=== PATIENT | male | born 1940 | race Caucasian/White ===

== ENCOUNTER → 2016-12-30 | Outpatient (CLI) | payer MEDICARE, OTHER | LOC: KOH-I 13:25 | DX: F02.80 Dementia in other diseases classified elsewhere, unspecified severity, without behavioral disturbance, psychotic disturbance, mood disturbance, and anxiety (principal); J32.4 Chronic pansinusitis | CPT/HCPCS: 70450 ==

== ENCOUNTER 2017-03-09 21:42 | Emergency (ER) | payer MEDICARE, OTHER ==
[2017-03-09 23:03] LABS: HEMOGLOBIN 13.9 gm/dl (14.0-17.5); RED BLOOD COUNT 4.6 M/UL (4.20-5.50)
== END 2017-03-10 02:14 | disposition home or self-care (01) ==
LOC: ER1 21:42
PROVIDERS: Family Medicine
DX: R41.82 Altered mental status, unspecified (principal); I10 Essential (primary) hypertension; Z88.6 Allergy status to analgesic agent; Z88.8 Allergy status to other drugs, medicaments and biological substances
CPT/HCPCS: 36415; 70450; 80053; 82550; 82553; 83874; 84484; 85025; 93005; 99285

== ENCOUNTER 2020-11-24 09:41 | Inpatient (IN) | payer MEDICARE, OTHER ==
[~2020-11-24] VITALS: Ht 182.9 cm; Wt 86.7 kg
[~2020-11-24 09:41] MED LIST: ACETAMINOPHEN500 MG PO; ALDACTONE 25MG25 MG PO; ALOE VESTA TOP; AMOX TR-K CLV1 EAC4 PO; ARICEPT10 MG PO; ARTANE 2MG TABLE2 MG PO; AVODART 0.5 MG0.5 MG PO; AZELASTINE HCL6 ML EYEBOTH; COENZYME Q10200 MG PO; COLACE 100MG C100 MG PO; COMBIVENT0.074 GM/I INH; COREG 3.125M3.125 MG PO; DAILY VITE1 EACH PO; DIAPER RASH57 GM TOP; DULCOLAX10 MG PR; DURAGESIC 12 M1 EACH TP; DURAGESIC1 EACH TD; ELIQUIS2.5 MG PO; FIBER TABS625 MG PO; FLONASE 0.05% N16 GM; GUAIFENESIN200 MG PO; IPRAT-ALBUT 0.5-3 ML INH; K-DUR TAB 20 M20 MEQ PO; KENALOG OINT 0.15 GM TOP; LASIX40 MG PO; LEVEMIR100 UNIT/1 SQ; LEXAPRO5 MG PO; LIPITOR10 MG PO; LOPRESSOR 25 MG25 MG PO; MAGIC BUTT CREAM TOP; METROCREAM 0.7545 GM EXT; MIRAPEX1 MG PO; MYCOSTATIN100000 UTS PO; MYRBETRIQ50 MG PO; NAMENDA10 MG PO; NEUPRO1 EAC1 TD; NORCO 5-325 TA1 EACH PO; OMNICEF 300 MG300 MG PO; PROTONIX40 M1 PO; PULMICORT0.5 MG/21 INH; RANOLAZINE ER500 MG PO; ROCEPHIN 1 GM AD1 GM IV; SENNA LAX8.6 MG PO; SEROQUEL TAB 2525 MG PO; SYNTHROID150 MCG PO; TRILEPTAL150 MG PO
[2020-11-24 10:39] LABS: HEMOGLOBIN 11.4 gm/dl (14.0-17.5); RED BLOOD COUNT 3.88 M/UL (4.20-5.50); WHITE BLOOD COUNT 9.2 K/UL (4.5-11.0)
[2020-11-24 11:05] LABS: BUN/CREATININE RATIO 26 (0-10)
[2020-11-25] MEDS ORDERED: SINEMET 25-1001 EACH PO (05:29)
[2020-11-25] MEDS ORDERED: NOVOLOG FL100 UNIT/1 SQ (07:14)
[2020-11-25] MEDS ORDERED: HYDROCODONE-AC1 EACH PO ×2 (12:17→12:22)
[2020-11-26 05:37] LABS: HEMOGLOBIN 11.4 gm/dl (14.0-17.5); RED BLOOD COUNT 3.88 M/UL (4.20-5.50)
[2020-11-26 05:39] LABS: WHITE BLOOD COUNT 6.8 K/UL (4.5-11.0)
[2020-11-26 05:51] LABS: BUN/CREATININE RATIO 15 (0-10)
--- NOTE | 2020-11-26 15:35 | NUR ---
ESTEVANHOFF PLACED, WITH XRAY CONFIRMATION. BRIDLE NOT PLACED WITH 5 ATTEMPTS. PHYSICIAN NOTIFIED, SAID "IT'S OK, WE WILL TRY TOMORROW."
[2020-11-27 13:06] LABS: HEMOGLOBIN 10.7 gm/dl (14.0-17.5); RED BLOOD COUNT 3.69 M/UL (4.20-5.50); WHITE BLOOD COUNT 6.6 K/UL (4.5-11.0)
[2020-11-27 13:41] LABS: BUN/CREATININE RATIO 10 (0-10)
[2020-11-28 06:03] LABS: HEMOGLOBIN 10.7 gm/dl (14.0-17.5); RED BLOOD COUNT 3.73 M/UL (4.20-5.50); WHITE BLOOD COUNT 7.3 K/UL (4.5-11.0)
[2020-11-28 06:22] LABS: BUN/CREATININE RATIO 11 (0-10)
[2020-11-29 12:13] LABS: BUN/CREATININE RATIO 12 (0-10)
[2020-11-30 03:32] LABS: HEMOGLOBIN 10.5 gm/dl (14.0-17.5); RED BLOOD COUNT 3.61 M/UL (4.20-5.50); WHITE BLOOD COUNT 7.2 K/UL (4.5-11.0)
[2020-11-30 03:52] LABS: BUN/CREATININE RATIO 14 (0-10)
--- NOTE | 2020-11-30 23:54 | NUR ---
PT CONFUSED PULLS DOBBHOFF OUT CONTINUOUSLY. NOTIFIED MD AND RECIEVED ORDERS. WILL CONTINUE TO MONITOR.
[2020-12-01 04:51] LABS: BUN/CREATININE RATIO 12 (0-10)
== END 2020-12-02 15:48 | DRG 177 ==
LOC: ER1 09:41 → CDU 13:22 → MED SURG 4 13:22
PROVIDERS: Emergency Medicine; Internal Medicine; Physician Assistant; ADMIT Internal Medicine
DX: J69.0 Pneumonitis due to inhalation of food and vomit (principal); L89.153 Pressure ulcer of sacral region, stage 3; U07.1 COVID-19; I50.32 Chronic diastolic (congestive) heart failure; I13.0 Hypertensive heart and chronic kidney disease with heart failure and stage 1 through stage 4 chronic kidney disease, or unspecified chronic kidney disease; N18.30 Chronic kidney disease, stage 3 unspecified; J32.4 Chronic pansinusitis; I25.10 Atherosclerotic heart disease of native coronary artery without angina pectoris; Z98.61 Coronary angioplasty status; E11.8 Type 2 diabetes mellitus with unspecified complications; G20 Parkinson's disease; F02.80 Dementia in other diseases classified elsewhere, unspecified severity, without behavioral disturbance, psychotic disturbance, mood disturbance, and anxiety; E03.9 Hypothyroidism, unspecified; E11.22 Type 2 diabetes mellitus with diabetic chronic kidney disease; I49.5 Sick sinus syndrome; Z95.810 Presence of automatic (implantable) cardiac defibrillator; Z88.1 Allergy status to other antibiotic agents; Z88.5 Allergy status to narcotic agent; Z88.8 Allergy status to other drugs, medicaments and biological substances; Z82.49 Family history of ischemic heart disease and other diseases of the circulatory system; Z83.3 Family history of diabetes mellitus; Z86.718 Personal history of other venous thrombosis and embolism; Z66 Do not resuscitate; Z86.16 Personal history of COVID-19; N40.0 Benign prostatic hyperplasia without lower urinary tract symptoms; Z79.4 Long term (current) use of insulin; Z79.899 Other long term (current) drug therapy; Z23 Encounter for immunization
CPT/HCPCS: 36415; 70450; 70490; 71045; 71250; 74018; 80048; 80053; 80202; 81001; 82550; 82553; 82962; 83605; 83690; 83735; 83874; 84484; 85025; 87086; 90471; 90715; 92526; 92610; 93005; 94664; 96365; 96366; 96367; 96368; 96372; 96375; 99285; A6212; J2543; J3370; J7030; J7070; U0002

== ENCOUNTER 2020-12-15 06:49 | Inpatient (IN) | payer MEDICARE, OTHER ==
[~2020-12-15] VITALS: Ht 180.3 cm; Wt 82.6 kg
[~2020-12-15 06:49] MED LIST changes: +HYDROCODONE-AC1 EACH PO; +NOVOLOG FL100 UNIT/1 SQ; +SINEMET 25-1001 EACH PO
[2020-12-15 07:18] LABS: HEMOGLOBIN 15.1 gm/dl (14.0-17.5); RED BLOOD COUNT 4.97 M/UL (4.20-5.50); WHITE BLOOD COUNT 6.5 K/UL (4.5-11.0)
[2020-12-16] MEDS ORDERED: ESCITALOPRAM OX10 MG PO (01:51)
[2020-12-16] MEDS ORDERED: QUETIAPINE FUMA25 MG PO (01:52)
[2020-12-16 02:43] LABS: HEMOGLOBIN 14.2 gm/dl (14.0-17.5); RED BLOOD COUNT 4.79 M/UL (4.20-5.50)
[2020-12-16 02:49] LABS: WHITE BLOOD COUNT 14.9 K/UL (4.5-11.0)
[2020-12-17 02:28] LABS: HEMOGLOBIN 13.3 gm/dl (14.0-17.5); RED BLOOD COUNT 4.48 M/UL (4.20-5.50); WHITE BLOOD COUNT 16.2 K/UL (4.5-11.0)
[2020-12-17 03:00] LABS: ACINETOBACTER BAUMANNII Not Detected (Negative); CANDIDA ALBICANS Not Detected (Negative); CANDIDA KRUSEI Not Detected (Negative); CANDIDA TROPICALIS Not Detected (Negative); ENTEROCOCCUS Not Detected (Negative); ESCHERICHIA COLI Not Detected (Negative); HAEMOPHILUS INFLUENZAE Not Detected (Negative); KLEBSIELLA OXYTOCA Not Detected (Negative); KLEBSIELLA PNEUMONIAE Not Detected (Negative); KPC-CARBAPENEM-RESISTANCE GENE Not Detected (Negative); PROTEUS Not Detected (Negative); PSEUDOMONAS AERUGINOSA Not Detected (Negative); SERRATIA MARCESANS Not Detected (Negative); STAPHYLOCOCCUS AUREUS Not Detected (Negative); STREP AGALACTIAE (GROUP B) Not Detected (Negative); STREP PYOGENES (GROUP A) Not Detected (Negative); STREPTOCOCCUS Not Detected (Negative); vanA/B (VANCOMYCIN RESIST GENE Not Detected (Negative)
[2020-12-17 03:03] LABS: mecA (METHICILLIN RESIST GENE DETECTED (Negative)
[2020-12-17 03:04] LABS: STAPHYLOCOCCUS DETECTED (Negative)
--- NOTE | 2020-12-18 01:30 | NUR ---
PT'S HEART RATE REMAINS ELEVATED. PT PLACED ON CARDIZEM DRIP AND AMNIO DRIP WAS D/LUDIVINA PER MD ORDERS.
--- NOTE | 2020-12-18 03:00 | NUR ---
MD CAME TO CHECK ON PT AND DECIDED TO CARDIOVERT PT. PT WAS CARDIOVERTED X1 AT 100J. PT IMMEDIATELY WENT INTO SINUS RHYTHM. DGT WAS NOTIFIED OF PROCEDURE.
[2020-12-18 06:12] LABS: HEMOGLOBIN 11.9 gm/dl (14.0-17.5); RED BLOOD COUNT 4.04 M/UL (4.20-5.50)
[2020-12-18 06:15] LABS: WHITE BLOOD COUNT 11.2 K/UL (4.5-11.0)
[2020-12-19 02:00] LABS: RED BLOOD COUNT 3.78 M/UL (4.20-5.50)
[2020-12-19 02:01] LABS: WHITE BLOOD COUNT 6.2 K/UL (4.5-11.0)
[2020-12-20 04:41] LABS: HEMOGLOBIN 10.5 gm/dl (14.0-17.5); RED BLOOD COUNT 3.61 M/UL (4.20-5.50)
[2020-12-20 04:54] LABS: WHITE BLOOD COUNT 8.2 K/UL (4.5-11.0)
[2020-12-21 04:36] LABS: HEMOGLOBIN 11.1 gm/dl (14.0-17.5); RED BLOOD COUNT 3.76 M/UL (4.20-5.50)
[2020-12-21 04:47] LABS: WHITE BLOOD COUNT 11.2 K/UL (4.5-11.0)
--- NOTE | 2020-12-23 07:40 | NUR ---
PATIENT ON 12/23/20 AT 0502. VERIFIED BY LAURA RESENDEZ, DERRICK AND OTIS WISE RN. WAREHOUSE ATTENDANT AND MD CALLED AT 0510. JACQUE NOTIFIED OF PATIENT'S AT 0524. HOME NOTIFIED OF PATIENT'S AT 0702. [facility]
== END 2020-12-23 05:02 | disposition expired | DRG 871 ==
LOC: ER1 06:49 → CDU 09:52 → PROG CARE 09:52
PROVIDERS: Physician Assistant Medical; Student in an Organized Health Care Education/Training Program; ADMIT Internal Medicine
PROC: 5A09457 Assistance with Respiratory Ventilation, 24-96 Consecutive Hours, Continuous Positive Airway Pressure (ICD-10-PCS; principal; 2020-12-15)
DX: A41.9 Sepsis, unspecified organism (principal); L89.153 Pressure ulcer of sacral region, stage 3; R65.21 Severe sepsis with septic shock; J96.01 Acute respiratory failure with hypoxia; J69.0 Pneumonitis due to inhalation of food and vomit; G93.41 Metabolic encephalopathy; I21.A1 Myocardial infarction type 2; N17.9 Acute kidney failure, unspecified; I13.0 Hypertensive heart and chronic kidney disease with heart failure and stage 1 through stage 4 chronic kidney disease, or unspecified chronic kidney disease; I50.32 Chronic diastolic (congestive) heart failure; C15.9 Malignant neoplasm of esophagus, unspecified; E87.0 Hyperosmolality and hypernatremia; Z51.5 Encounter for palliative care; Z66 Do not resuscitate; D64.9 Anemia, unspecified; D69.6 Thrombocytopenia, unspecified; I25.10 Atherosclerotic heart disease of native coronary artery without angina pectoris; I49.5 Sick sinus syndrome; E11.22 Type 2 diabetes mellitus with diabetic chronic kidney disease; N18.30 Chronic kidney disease, stage 3 unspecified; F02.80 Dementia in other diseases classified elsewhere, unspecified severity, without behavioral disturbance, psychotic disturbance, mood disturbance, and anxiety; G31.83 Neurocognitive disorder with Lewy bodies; E03.9 Hypothyroidism, unspecified; I48.91 Unspecified atrial fibrillation; J44.9 Chronic obstructive pulmonary disease, unspecified; N40.0 Benign prostatic hyperplasia without lower urinary tract symptoms; E78.5 Hyperlipidemia, unspecified; I95.9 Hypotension, unspecified; K21.9 Gastro-esophageal reflux disease without esophagitis; I87.2 Venous insufficiency (chronic) (peripheral); E88.09 Other disorders of plasma-protein metabolism, not elsewhere classified; M51.36 Other intervertebral disc degeneration, lumbar region; R13.10 Dysphagia, unspecified; Z95.5 Presence of coronary angioplasty implant and graft; Z86.16 Personal history of COVID-19; Z95.810 Presence of automatic (implantable) cardiac defibrillator; Z88.1 Allergy status to other antibiotic agents; Z88.5 Allergy status to narcotic agent; Z86.718 Personal history of other venous thrombosis and embolism; Z79.01 Long term (current) use of anticoagulants; Z79.890 Hormone replacement therapy; Z79.4 Long term (current) use of insulin; Z79.899 Other long term (current) drug therapy; Z87.891 Personal history of nicotine dependence; Z82.49 Family history of ischemic heart disease and other diseases of the circulatory system; Z83.3 Family history of diabetes mellitus; Z88.8 Allergy status to other drugs, medicaments and biological substances
CPT/HCPCS: 0240U; 36415; 36600; 51702; 70450; 71045; 80053; 80202; 81001; 82330; 82550; 82553; 82803; 82962; 83605; 83735; 83880; 84100; 84132; 84484; 85025; 85610; 85730; 87040; 87070; 87077; 87086; 87150; 87186; 87205; 92610; 93005; 94640; 94660; 94664; 94760; 96365; 96366; 96368; 99285; C9113; J0692; J1160; J1644; J1650; J1940; J2060; J2185; J2270; J2543; J3370; J3475; J3480; J7030; J7050; J7070; P9047